=== PATIENT | female | born 1955 ===

== ENCOUNTER 2019-07-04 12:46 | Emergency (ER) | payer OTHER ==
[~2019-07-04] VITALS: Ht 177.8 cm; Wt 108.9 kg
[2019-07-04] MEDS ORDERED: ATENOLOL25 MG (13:18)
[2019-07-04] MEDS ORDERED: JANUMET 50-1,01 EACH (13:18)
== END 2019-07-04 21:28 | disposition home or self-care (01) ==
LOC: ER 12:46
DX: S60.426A Blister (nonthermal) of right little finger, initial encounter (principal); X58.XXXA Exposure to other specified factors, initial encounter; Y93.89 Activity, other specified; Y92.89 Other specified places as the place of occurrence of the external cause; Y99.8 Other external cause status

== ENCOUNTER 2023-05-20 07:29 | Inpatient (IN) | payer OTHER ==
[~2023-05-20] VITALS: Ht 177.8 cm; Wt 112.5 kg
[~2023-05-20 07:29] MED LIST: ATENOLOL25 MG; JANUMET 50-1,01 EACH
[2023-05-20] MEDS ORDERED: METOPROLOL SUCC50 MG PO (07:48)
--- NOTE | 2023-05-20 07:57 | NUR ---
SE RECIBE FEMINA ALERTA Y ORIENTADA X3 QUIEN REFIERE DOLOR PUNZANTE EN FLANCO DERECHO QUE COMENZO EN LA MADRUGADA. SE MIDEN S/V Y SE UBICA.
--- NOTE | 2023-05-20 09:50 | NUR ---
SE ORIENTA PTE SOBRE TX A SEGUIR, LA MISMA REFIERE ENTENDER. SE LISA MUESTRAS DE LAB, SE CANALIZA Y SE ADMINISTRAN MEDS JACKI ORDEN MEDICA
== END 2023-05-26 20:15 | disposition home or self-care (01) | DRG 418 ==
LOC: ER 07:29 → SURG 19:23
PROVIDERS: Surgery; ADMIT Specialist; ATTEND Specialist
PROC: BW40ZZZ Ultrasonography of Abdomen (ICD-10-PCS; 2023-05-20)
PROC: 0FT44ZZ Resection of Gallbladder, Percutaneous Endoscopic Approach (ICD-10-PCS; principal; 2023-05-25 12:30)
DX: K80.10 Calculus of gallbladder with chronic cholecystitis without obstruction (principal); K90.49 Malabsorption due to intolerance, not elsewhere classified; I10 Essential (primary) hypertension; E11.9 Type 2 diabetes mellitus without complications; Z79.4 Long term (current) use of insulin; E66.01 Morbid (severe) obesity due to excess calories; Z20.822 Contact with and (suspected) exposure to COVID-19